=== PATIENT | female | born 1990 | race Caucasian/White ===

== ENCOUNTER 2024-04-14 04:14 | Emergency (ER) | payer OTHER ==
[~2024-04-14] VITALS: Ht 172.7 cm; Wt 108.0 kg
[~2024-04-14 04:14] MED LIST: AUGMENTIN875TAB PO; BACLOFEN10 MG PO; BUTALBITAL/ACET1 CAP PO; CETIRIZINE10 MG PO; DICYCLOMINE10 MG PO; NAPROSYN250 MG PO; PRILOSEC40 MG PO; PROVENTIL HFA IN; TRAZODONE50 MG PO; TYLENOL # 31 TA1 PO
[2024-04-14] MEDS ORDERED: SODIUM CHLORIDE 0.9% 1,000 ML IV ONE ×2 (04:35→04:40)
[2024-04-14] MEDS ORDERED: ONDANSETRON HCl 4 MG/2 ML SDV IV ONE (04:35)
[2024-04-14] MEDS ORDERED: DiphenhydrAMINE HCL 50 MG/ML SDV IV ONE (04:40)
[2024-04-14] MEDS ORDERED: METOCLOPRAMIDE HCL 10 MG/2 ML SDV IV ONE (04:40)
[2024-04-14 05:02] LABS: BASO% 0.4 % (0-3); EOS% 0.8 % (0-8); HEMATOCRIT 42.1 % (37.0-47.0); HEMOGLOBIN 13.9 g/dl (12.0-16.0); IMMATURE GRANULOCYTES 0.8 % (0.0-5.0); LYMPH% 30.7 % (15-41); MEAN CELL VOLUME 85.2 fL CALC (80.0-100.0); MEAN CORPUSCULAR HGB 28.1 pG CALC (26.0-32.0); MONO% 9.6 % (2-13); NEUT# 4.43 thou/uL (2.00-7.15); NEUT% 57.7 % (42-76); RED BLOOD COUNT 4.94 mill/uL (4.20-5.60); RED CELL DISTRI WIDTH 13.9 % (11.5-15.5)
[2024-04-14 05:13] LABS: ALBUMIN 4.3 g/dL (3.2-5.0); BILIRUBIN, TOTAL 0.4 mg/dL (0.02-1.3); CREATININE 1.1 mg/dL (0.5-1.0); POTASSIUM 4.1 mmol/l (3.5-5.1); TOTAL PROTEIN 7.2 g/dL (6.3-8.2)
[2024-04-14 06:00] LABS: URINE BILIRUBIN - DIPSTICK Negative (NEGATIVE); URINE BLOOD DIPSTICK Trace-intact (NEGATIVE); URINE COLOR Yellow; URINE GLUCOSE - DIPSTICK Negative (NEGATIVE); URINE KETONE Negative (NEGATIVE); URINE LEUK ESTERASE Large (NEGATIVE); URINE NITRITE - DIPSTICK Negative (Negative); URINE PH 8.5 (4.5-8.0); URINE PROTEIN - DIPSTICK 100 mg/dL (NEG-TRACE); URINE UROBILINOGEN - DIPSTICK 0.2 E.U./dL (0.2)
[2024-04-14 06:01] VITALS: BP 106/70
[2024-04-14 06:10] LABS: URINE BACTERIA MODERATE hpf; URINE SQUAMOUS EPITHELIAL CELL FEW EPI/hpf (0-FEW); URINE WBC >100 WBC/hpf (0-5)
[2024-04-14] MEDS ORDERED: REGLAN10 MG PO (06:36)
[2024-04-14 06:38] VITALS: BP 106/70
== END 2024-04-14 06:43 | disposition home or self-care (01) | DRG 690 ==
LOC: ED 04:14
PROVIDERS: Emergency Medicine
DX: N30.10 Interstitial cystitis (chronic) without hematuria (principal); B95.2 Enterococcus as the cause of diseases classified elsewhere; K52.9 Noninfective gastroenteritis and colitis, unspecified; Z87.440 Personal history of urinary (tract) infections; F17.200 Nicotine dependence, unspecified, uncomplicated; Z20.822 Contact with and (suspected) exposure to COVID-19

== ENCOUNTER 2024-04-20 00:57 | Emergency (ER) | payer OTHER ==
[~2024-04-20] VITALS: Ht 172.7 cm; Wt 108.0 kg
[2024-04-20] VITALS (7 sets, daily range): BP systolic 108–114; BP diastolic 61–73
[~2024-04-20 00:57] MED LIST changes: +REGLAN10 MG PO
[2024-04-20] MEDS ORDERED: FUROSEMIDE 20 MG/TAB PO ONE (01:40)
[2024-04-20] MEDS ORDERED: ZOFRAN4 MG/TAB PO (01:54)
[2024-04-20] MEDS ORDERED: VISTARIL25 MG PO (01:55)
[2024-04-20] MEDS ORDERED: FAMOTIDINE20 M1 PO (01:56)
[2024-04-20] MEDS ORDERED: BUSPAR30 MG PO (01:56)
[2024-04-20] MEDS ORDERED: CELEBREX100 M1 PO (01:57)
[2024-04-20] MEDS ORDERED: SIMVASTATIN10 MG PO (01:58)
[2024-04-20] MEDS ORDERED: SEROQUEL200 MG PO (01:59)
[2024-04-20] MEDS ORDERED: SEROQUEL100 MG PO (01:59)
[2024-04-20] MEDS ORDERED: TOPROL XL50 MG PO (02:00)
[2024-04-20] MEDS ORDERED: VALTREX1 GM PO (02:02)
[2024-04-20] MEDS ORDERED: OXYBUTYNIN CHLOR5 M2 PO (02:02)
[2024-04-20] MEDS ORDERED: [UNRECOGNIZED DRUG - OTHER] PO (02:04)
[2024-04-20] MEDS ORDERED: B121000 MC1 PO (02:05)
[2024-04-20] MEDS ORDERED: B6 FOLIC ACD PO (02:06)
[2024-04-20] MEDS ORDERED: D2000 ULTRA2000 UNIT PO (02:06)
[2024-04-20 02:11] LABS: BASO% 0.4 % (0-3); EOS% 1.7 % (0-8); IMMATURE GRANULOCYTES 0.2 % (0.0-5.0); MEAN CELL VOLUME 87.9 fL CALC (80.0-100.0); MEAN CORPUSCULAR HGB 28.6 pG CALC (26.0-32.0); MEAN CORPUSCULAR HGB CONC 32.5 g/dL CAL (32.0-36.0); MONO% 8.7 % (2-13); NEUT# 4.55 thou/uL (2.00-7.15); RED BLOOD COUNT 4.06 mill/uL (4.20-5.60); RED CELL DISTRI WIDTH 14.4 % (11.5-15.5)
[2024-04-20 02:12] LABS: HEMATOCRIT 35.7 % (37.0-47.0); HEMOGLOBIN 11.6 g/dl (12.0-16.0)
[2024-04-20 02:23] LABS: ALBUMIN 3.8 g/dL (3.2-5.0); CREATININE 1.4 mg/dL (0.5-1.0); MAGNESIUM 2.1 mg/dL (1.6-2.3); POTASSIUM 3.5 mmol/l (3.5-5.1); TOTAL PROTEIN 6.5 g/dL (6.3-8.2)
[2024-04-20 02:29] LABS: BILIRUBIN, TOTAL 0.6 mg/dL (0.02-1.3)
[2024-04-20 02:49] LABS: URINE BILIRUBIN - DIPSTICK Negative (NEGATIVE); URINE BLOOD DIPSTICK Moderate (NEGATIVE); URINE GLUCOSE - DIPSTICK Negative (NEGATIVE); URINE KETONE Trace mg/dL (NEGATIVE); URINE PROTEIN - DIPSTICK 100 mg/dL (NEG-TRACE); URINE SPECIFIC GRAVITY >=1.030; URINE UROBILINOGEN - DIPSTICK 0.2 E.U./dL (0.2)
[2024-04-20 02:50] LABS: URINE COLOR Yellow; URINE LEUK ESTERASE Moderate (NEGATIVE)
[2024-04-20 02:51] LABS: URINE NITRITE - DIPSTICK Negative (Negative)
[2024-04-20 02:54] LABS: URINE WBC >100 WBC/hpf (0-5)
[2024-04-20 02:54] LABS: TSH, 3RD GENERATION 2.2 uIU/mL (0.47 - 4.68)
[2024-04-20 02:55] LABS: URINE BACTERIA MANY hpf; URINE EPITHELIAL CELLS MODERATE EPI/hpf (0-FEW); URINE RBC 50-100 RBC/hpf (0-5)
[2024-04-20] MEDS ORDERED: NITROFURANTOIN 100 MG/CAP PO ONE (03:25)
[2024-04-20] MEDS ORDERED: MACROBID100 M1 PO (03:26)
== END 2024-04-20 03:50 | disposition home or self-care (01) ==
LOC: ED 00:57
PROVIDERS: Family Medicine
DX: R60.0 Localized edema (principal); N39.0 Urinary tract infection, site not specified; B95.2 Enterococcus as the cause of diseases classified elsewhere; I34.1 Nonrheumatic mitral (valve) prolapse; F17.200 Nicotine dependence, unspecified, uncomplicated; Z59.02 Unsheltered homelessness; T50.906A Underdosing of unspecified drugs, medicaments and biological substances, initial encounter; Z91.138 Patient's unintentional underdosing of medication regimen for other reason